=== PATIENT | female | born 1945 | race Caucasian/White ===

== ENCOUNTER 2020-12-24 18:49 | Inpatient (IN) ==
[2020-12-24] MEDS ORDERED: ONDANSETRON 4 MG/2 ML VIAL IV STA (19:40)
[2020-12-24] MEDS ORDERED: PANTOPRAZOLE 40 MG TABLET PO STA (19:40)
[2020-12-24 20:20] LABS: Basophils # 0.1 10*3/uL (0.0-0.2); Basophils % 0.5 % (0.0-0.8); Eosinophils # 0.1 10*3/uL (0.0-0.87); Hematocrit 26.2 VOL% (35.7-47.0); Hemoglobin 7.9 GM/DL (12.0-16.0); Immature Granulocytes % 0.6 %; Immature Granulocytes Absolute 0.06 #; Lymphocytes # 1.5 10*3/uL (1.4-4.0); Lymphocytes % 16.1 % (21.3-54.2); Mean Corpuscular HGB Conc 30.2 GM/DL (32-36); Mean Corpuscular Volume 74.9 FL (87-102); Mean Platelet Volume 11.4 FL (9.6-12.0); Monocytes % 10.6 % (1.7-12.7); Neutrophils % 71.2 % (38.7-73.9); Platelet Count 424 T/CUMM (130-400); Red Cell Distribution Width 19.3 % (9.3-17.3); White Blood Count 9.4 T/CUMM (4-12)
[2020-12-24 20:37] LABS: Alanine Aminotransferase 9 U/L (13-56); Albumin 3.1 G/DL (3.4-5.0); Alkaline Phosphatase 59 U/L (45-117); Aspartate Amino Transferase 8 U/L (0-37); Bilirubin,Total < 0.39 MG/DL (0.20-1.00); Blood Urea Nitrogen 20 MG/DL (7-18); Calcium 8.7 MG/DL (8.5-10.1); Carbon Dioxide 27 MMOL/L (21-32); Estimated Glom Filtration Rate 91 ML/MIN; Glucose 120 MG/DL (74-106); Potassium 3.5 MMOL/L (3.5-5.1); Sodium 136 MMOL/L (136-145); Total Protein 6.7 G/DL (6.4-8.2)
[2020-12-24] MEDS ORDERED: GLUCAGON 1 MG VIAL IM PRN ×2 (20:44)
[2020-12-24] MEDS ORDERED: ACETAMINOPHEN 325 MG TABLET PO PRN (20:44)
[2020-12-24] MEDS ORDERED: ZALEPLON 5 MG CAPSULE PO PRN (20:44)
[2020-12-24] MEDS ORDERED: hydrALAZINE 20 MG/1 ML VIAL IV PRN (20:44)
[2020-12-24] MEDS ORDERED: DOCUSATE SODIUM 100 MG CAPSULE PO PRN (20:44)
[2020-12-24] MEDS ORDERED: diphenhydrAMINE CAP 25 MG CAPSULE PO PRN (20:44)
[2020-12-24] MEDS ORDERED: BISACODYL 5 MG TABLET PO PRN (20:44)
[2020-12-24] MEDS ORDERED: DEXTROSE 50% 25 GM/50 ML VIAL IV PRN ×2 (20:44)
[2020-12-24] MEDS ORDERED: guaiFENesin/DM ER 600-30 MG TABLET PO PRN (20:44)
[2020-12-24] MEDS ORDERED: ONDANSETRON 4 MG/2 ML VIAL IV PRN (20:44)
[2020-12-24] MEDS ORDERED: NICOTINE 21 MG/24 HR PATCH TRANSDERM PRN (20:44)
[2020-12-24] MEDS ORDERED: AZITHROMYCIN INJ 500 MG in SODIUM CHLORIDE 0.9% 250 ML IV ONE (20:50)
[2020-12-24] MEDS ORDERED: FAMOTIDINE 20 MG TABLET PO SCH (21:00)
[2020-12-24] MEDS: ASCORBIC ACID 500 MG TABLET PO SCH (21:45)
[2020-12-24] MEDS: INSULIN LISPRO 100 UNIT/ML SUBCUT SCH (21:54)
[2020-12-25] MEDS ORDERED: SODIUM CHLORIDE 0.9% 1,000 ML IV PRN ×2 (00:17→11:28)
[2020-12-25 01:08] LABS: Basophils # 0.1 10*3/uL (0.0-0.2); Basophils % 0.5 % (0.0-0.8); Eosinophils # 0.1 10*3/uL (0.0-0.87); Eosinophils % 1.2 % (0.00-10.9); Hematocrit 24.7 VOL% (35.7-47.0); Hemoglobin 7.4 GM/DL (12.0-16.0); Immature Granulocytes % 0.8 %; Immature Granulocytes Absolute 0.08 #; Lymphocytes # 1.5 10*3/uL (1.4-4.0); Lymphocytes % 15.9 % (21.3-54.2); Mean Platelet Volume 11.6 FL (9.6-12.0); Neutrophils % 70.6 % (38.7-73.9); Platelet Count 393 T/CUMM (130-400); Red Blood Count 3.25 MC/CUMM (3.8-5.5); Red Cell Distribution Width 19.2 % (9.3-17.3); White Blood Count 9.4 T/CUMM (4-12)
[2020-12-25 01:29] LABS: Calcium 8.4 MG/DL (8.5-10.1); Osmolality,Calculated 274.1 MOS/KG (273-304); Potassium 3.3 MMOL/L (3.5-5.1)
[2020-12-25 02:08] LABS: Sedimentation Rate-Westergren 50 MM/HR (0-30)
[2020-12-25 02:24] LABS: Folate 14.33 NG/ML (5.38-24.0); Vitamin B12 348 PG/ML (211-911)
[2020-12-25] MEDS ORDERED: POTASSIUM CHLORIDE 20 MEQ TABLET PO ONE (07:50)
[2020-12-25] MEDS: INSULIN LISPRO 100 UNIT/ML SUBCUT SCH ×4 (08:10→21:08)
[2020-12-25] MEDS: CHOLECALCIFEROL 1,000 UNIT TABLET PO SCH (08:54)
[2020-12-25] MEDS: ASCORBIC ACID 500 MG TABLET PO SCH ×2 (08:54→21:08)
[2020-12-25] MEDS: PANTOPRAZOLE 40 MG VIAL IV SCH ×3 (08:55→21:08)
[2020-12-25] MEDS: ZINC GLUCONATE 50 MG TABLET PO SCH (08:55)
[2020-12-25] MEDS: DEXAMETHASONE 4 MG/1 ML VIAL IV SCH (08:55)
[2020-12-25] MEDS: LEVOFLOXACIN INJ 750 MG/150 ML PREMIX IV SCH (09:48)
[2020-12-25 09:51] LABS: Basophils # 0.1 10*3/uL (0.0-0.2); Basophils % 0.6 % (0.0-0.8); Eosinophils # 0.2 10*3/uL (0.0-0.87); Eosinophils % 1.8 % (0.00-10.9); Hematocrit 28.3 VOL% (35.7-47.0); Hemoglobin 8.6 GM/DL (12.0-16.0); Immature Granulocytes % 0.5 %; Immature Granulocytes Absolute 0.04 #; Lymphocytes # 1.4 10*3/uL (1.4-4.0); Lymphocytes % 17.4 % (21.3-54.2); Mean Corpuscular HGB Conc 30.4 GM/DL (32-36); Mean Corpuscular Volume 77.1 FL (87-102); Mean Platelet Volume 11.4 FL (9.6-12.0); Neutrophils % 65.7 % (38.7-73.9); Platelet Count 358 T/CUMM (130-400); Red Blood Count 3.67 MC/CUMM (3.8-5.5); Red Cell Distribution Width 19.6 % (9.3-17.3); White Blood Count 8.2 T/CUMM (4-12)
[2020-12-25] MEDS: DOXYCYCLINE HYCLATE INJ 100 MG in SODIUM CHLORIDE 0.9% 100 ML IV SCH ×2 (11:24→21:53)
[2020-12-25 13:06] LABS: Basophils % 0.3 % (0.0-0.8); Eosinophils % 0.1 % (0.00-10.9); Hematocrit 29.7 VOL% (35.7-47.0); Immature Granulocytes % 0.7 %; Immature Granulocytes Absolute 0.06 #; Lymphocytes # 0.6 10*3/uL (1.4-4.0); Lymphocytes % 6.4 % (21.3-54.2); Mean Corpuscular HGB Conc 30.3 GM/DL (32-36); Mean Corpuscular Volume 76.7 FL (87-102); Mean Platelet Volume 11.5 FL (9.6-12.0); Monocytes % 1.6 % (1.7-12.7); Neutrophils % 90.9 % (38.7-73.9); Platelet Count 375 T/CUMM (130-400); Red Blood Count 3.87 MC/CUMM (3.8-5.5); Red Cell Distribution Width 19.4 % (9.3-17.3); White Blood Count 8.7 T/CUMM (4-12)
[2020-12-25 13:16] LABS: INR 1.3; PT Patient Result 14.6 SECS (10.5-12.0)
[2020-12-25 13:24] LABS: Lymphocytes 5 % (20-55); Metamyelocytes 1 %; Segmented Neutrophils 94 % (50-85); Total Cells Counted 100
[2020-12-25 13:25] LABS: Anisocytosis 2+; Elliptocytes Few; Hypochromasia 1+; Macrocytosis 1+; Microcytosis 2+; Platelet Estimate Normal; Poikilocytosis Few; Polychromasia Few; Schistocytes Few
[2020-12-25] MEDS ORDERED: diphenhydrAMINE CAP 25 MG CAPSULE PO PRN (14:15)
[2020-12-25] MEDS ORDERED: ONDANSETRON 4 MG TABLET PO PRN (14:15)
[2020-12-25] MEDS ORDERED: ONDANSETRON 4 MG/2 ML VIAL IV PRN (14:15)
[2020-12-25] MEDS ORDERED: MECLIZINE 25 MG TABLET PO PRN (14:15)
[2020-12-25] MEDS ORDERED: diphenhydrAMINE CAP 50 MG CAPSULE PO PRN (14:15)
[2020-12-25] MEDS ORDERED: methylPREDNISolone SOD SUC 125 MG/2 ML VIAL IV PRN (14:15)
[2020-12-25] MEDS ORDERED: ACETAMINOPHEN 325 MG TABLET PO PRN (14:15)
[2020-12-25] MEDS ORDERED: diphenhydrAMINE 50 MG/1 ML VIAL IV PRN ×2 (14:15)
[2020-12-25] MEDS ORDERED: methylPREDNISolone SOD SUC 125 MG/2 ML VIAL IM PRN (14:15)
[2020-12-25] MEDS ORDERED: CASIRIVIMAB/IMDEVIMAB 1,200 MG in SODIUM CHLORIDE 0.9% 100 ML IV ONE (14:15)
[2020-12-25] MEDS ORDERED: METOPROLOL TARTRATE 25 MG TABLET PO ONE (15:02)
[2020-12-25] MEDS ORDERED: MELATONIN 3 MG TABLET PO SCH (21:00)
[2020-12-25] MEDS: METOPROLOL TARTRATE 25 MG TABLET PO SCH (21:08)
[2020-12-26 05:51] LABS: Basophils % 0.3 % (0.0-0.8); Hematocrit 27.6 VOL% (35.7-47.0); Hemoglobin 8.4 GM/DL (12.0-16.0); Immature Granulocytes % 0.6 %; Immature Granulocytes Absolute 0.04 #; Lymphocytes # 1.1 10*3/uL (1.4-4.0); Lymphocytes % 17.7 % (21.3-54.2); Mean Corpuscular HGB Conc 30.4 GM/DL (32-36); Mean Corpuscular Volume 77.3 FL (87-102); Mean Platelet Volume 12.1 FL (9.6-12.0); Monocytes % 9.5 % (1.7-12.7); Neutrophils % 71.9 % (38.7-73.9); Platelet Count 367 T/CUMM (130-400); Red Blood Count 3.57 MC/CUMM (3.8-5.5); Red Cell Distribution Width 19.3 % (9.3-17.3); White Blood Count 6.4 T/CUMM (4-12)
[2020-12-26 06:00] LABS: Calcium 8.7 MG/DL (8.5-10.1); Osmolality,Calculated 278.5 MOS/KG (273-304); Potassium 3.8 MMOL/L (3.5-5.1)
[2020-12-26] MEDS: INSULIN LISPRO 100 UNIT/ML SUBCUT SCH ×2 (07:45→11:36)
[2020-12-26 08:13] LABS: INR 1.2; PT Patient Result 13.1 SECS (10.5-12.0)
[2020-12-26] MEDS: METOPROLOL TARTRATE 25 MG TABLET PO SCH (08:33)
[2020-12-26] MEDS: ASCORBIC ACID 500 MG TABLET PO SCH (08:33)
[2020-12-26] MEDS: ZINC GLUCONATE 50 MG TABLET PO SCH (08:33)
[2020-12-26] MEDS: CHOLECALCIFEROL 1,000 UNIT TABLET PO SCH (08:33)
[2020-12-26] MEDS: PANTOPRAZOLE 40 MG VIAL IV SCH ×2 (08:34→08:40)
[2020-12-26] MEDS: DOXYCYCLINE HYCLATE INJ 100 MG in SODIUM CHLORIDE 0.9% 100 ML IV SCH (08:35)
[2020-12-26] MEDS: DEXAMETHASONE 4 MG/1 ML VIAL IV SCH (08:57)
[2020-12-26] MEDS: LEVOFLOXACIN INJ 750 MG/150 ML PREMIX IV SCH (10:01)
[2020-12-26 11:59] VITALS: BP 113/73
[2020-12-28 09:16] LABS: Hemoglobin A1 (Alkaline) 97.9 % (96.5-98.5); Hemoglobin A2 (Alkaline) 2.1 % (1.5-3.5)
== END 2020-12-26 15:00 | DRG 813 ==
LOC: N.ED 18:49 → N.EDINP 20:44 → N.2E 21:50
PROVIDERS: ADMIT Internal Medicine; ATTEND Internal Medicine